=== PATIENT | female | born 1960 | race Caucasian/White ===

== ENCOUNTER 2018-07-25 07:13 | Day surgery (SDC) | payer OTHER ==
[2018-07-25] MEDS ORDERED: Midazolam 1 MG/ML 2 ML SDV ONE ×2 (07:36→09:31)
[2018-07-25] MEDS ORDERED: Propofol 200 MG/20 ML SDV ONE ×3 (07:36→09:33)
[2018-07-25] MEDS ORDERED: fentaNYL 100 MCG/2 ML SDV ONE (07:36)
[2018-07-25] MEDS: Sodium Chloride 0.9% 1,000 ML IV SCH (07:42)
[2018-07-25] MEDS: Lidocaine 1% with EPINEPHrine 1:100,000 50 ML MDV ONE (09:42)
[2018-07-25] MEDS: Bupivacaine 0.5% 50 ML MDV ONE (09:42)
[2018-07-25] MEDS: Morphine 2 MG/ML Syringe IVPUSH ONE (10:55)
--- NOTE | 2018-07-25 11:14 | CRLCR ---
INDICATION: Port-A-Cath insertion. Exclude pneumothorax. TECHNIQUE: Portable chest performed at 10:06 a.m. FINDINGS: There is no evidence of pneumothorax or mediastinal hematoma. The tip of the right-sided Port-A-Cath lies at the juncture of the subclavian vein and innominate vein. Dictated by Marcelino Miranda MD @ Jul 25 2018 11:11AM Signed by Dr. Marcelino Miranda @ Jul 25 2018 11:11AM
[2018-07-25] MEDS: Acetaminophen/HYDROcodone 325-5 MG Tab PO ONE (11:58)
[2018-07-25 12:02] VITALS: BP 118/82
--- NOTE | 2018-07-25 17:33 | OR ---
DATE OF PROCEDURE: 07/25/2018 PROCEDURE: Port-A-Cath placement. COMPLICATIONS: None. MOUNTER: None. ANESTHESIA: MAC/local. RISKS: Risks, benefits, alternatives, and limitations including, but not limited to infection, bleeding, pneumothorax, and other risks not listed here were explained to the patient, who wished to proceed. PROCEDURE IN DETAIL: The patient was placed in supine position. The left subclavian was accessed on the first pass. The vein was able to be accessed, and the wire was able to be advanced. However, at the innominate vein, it was unable to be advanced due to sclerosing or angle of anatomy. This was attempted multiple times, but unfortunately, this was unable to be traversed. Due to this most likely issue at the innominate vein, the left jugular vein would not be a good target as this would end up in the same area of tortuosity or obstruction. Therefore, the right side was then addressed as an unfortunate second choice. The subclavian vein was accessed on the first pass. This was advanced without difficulty. Once this was completed, the micropuncture kit was exchanged for the standard wire. The tubing was then advanced. I was able to advance, the wire was removed. This was deflected in the upper part of the superior vena cava. A pocket was then created and the skin was anesthetized, after anesthetizing with 1% lidocaine. This was then sutured into place. A De La Fuente needle was used to check the device, which functioned well. This was then closed and then checked again, and worked well without difficulty. The patient tolerated the procedure well. Juni Paulino MD /[id number]
== END 2018-07-25 12:40 | disposition home or self-care (01) ==
LOC: JP.SDS 07:13
PROVIDERS: ATTEND Surgery
DX: C50.919 Malignant neoplasm of unspecified site of unspecified female breast (principal); F41.9 Anxiety disorder, unspecified; Z87.891 Personal history of nicotine dependence
CPT/HCPCS: A9270-GY; C1788; C1894; J1642; J2250; J2270; J2704; J3010; J3490; J7030

== ENCOUNTER 2018-07-27 13:32 | Day surgery (SDC) | payer OTHER ==
[~2018-07-27 13:32] MED LIST: Bupivacaine 0.5% 50 ML MDV ONE; Lidocaine 1% with EPINEPHrine 1:100,000 50 ML MDV ONE; Midazolam 1 MG/ML 2 ML SDV ONE; Propofol 200 MG/20 ML SDV ONE; fentaNYL 100 MCG/2 ML SDV ONE
[2018-07-27] MEDS ORDERED: Sodium Chloride 0.9% 1,000 ML IV SCH (14:00)
[2018-07-27] MEDS ORDERED: Propofol 200 MG/20 ML SDV ONE (14:17)
[2018-07-27] MEDS ORDERED: Morphine 2 MG/ML Syringe IVPUSH ONE (15:22)
--- NOTE | 2018-07-27 15:25 | OR ---
DATE OF PROCEDURE: 07/27/2018 PROCEDURE: Removal of Bard PowerPort. INDICATIONS: A pleasant 57-year-old female, who had an erythematous reaction immediately after placement of the port. She was seen early in clinic today and this erythematous reaction continued to be noted in her arms, shoulders, and chest. This reaction had occurred immediately after placement leading to infection. COMPLICATIONS: None. GENERATOR REBUILDER: None. ANESTHESIA: MAC/local. PROCEDURE IN DETAIL: The patient was placed in supine position. The previous port site was opened with a 15 blade. The port was identified. The sutures were clipped and removed. The wound was irrigated and closed with 3-0 Vicryl and 4-0 Vicryl. Prior to irrigation, this was also cultured. Dressings were applied. The patient tolerated the procedure well. Juni Paulino MD /[id number]
[2018-07-27] MEDS ORDERED: Acetaminophen/HYDROcodone 325-5 MG Tab PO PRN (15:42)
== END 2018-07-27 16:25 | disposition home or self-care (01) ==
LOC: JP.SDS 13:32
PROVIDERS: ATTEND Surgery
DX: T80.219A Unspecified infection due to central venous catheter, initial encounter (principal); C50.911 Malignant neoplasm of unspecified site of right female breast
CPT/HCPCS: 36590; 87070; 87075; 87205; A9270; J2250; J2270; J2704; J3010; J3490; J7030

== ENCOUNTER 2018-08-10 09:19 | Day surgery (SDC) | payer OTHER ==
[~2018-08-10 09:19] MED LIST changes: -Bupivacaine 0.5% 50 ML MDV ONE; -Lidocaine 1% with EPINEPHrine 1:100,000 50 ML MDV ONE
[2018-08-10] MEDS ORDERED: Bupivacaine 0.5% 50 ML MDV ONE (09:33)
[2018-08-10] MEDS ORDERED: Lidocaine 1% with EPINEPHrine 1:100,000 50 ML MDV ONE (09:33)
[2018-08-10] MEDS ORDERED: Sodium Chloride 0.9% 1,000 ML IV SCH (09:45)
[2018-08-10] MEDS ORDERED: ceFAZolin 2 GM in Premix Bag 1 BAG IV ONE (10:15)
[2018-08-10] MEDS ORDERED: Propofol 200 MG/20 ML SDV ONE ×2 (10:26→10:39)
[2018-08-10] MEDS ORDERED: Morphine 2 MG/ML Syringe IVPUSH PRN (11:06)
[2018-08-10] MEDS ORDERED: hydrOXYzine HCl 100 MG/2 ML SDV IM ONE (11:29)
[2018-08-10] MEDS ORDERED: Acetaminophen/HYDROcodone 325-5 MG Tab PO ONE (12:25)
--- NOTE | 2018-08-11 08:32 | OR ---
DATE OF PROCEDURE: 08/10/2018 PROCEDURE: Port-A-Cath placement, left jugular vein. COMPLICATIONS: None. SURGEON: Juni Paulino MD PRINTING PLATE MAKER: None. ANESTHESIA: MAC/local. RISKS: Risks, benefits, alternatives, and limitations including, but not limited to infection, bleeding, and pneumothorax were explained to the patient, who wished to proceed. PREOPERATIVE DIAGNOSIS: Breast cancer. POSTOPERATIVE DIAGNOSIS: Breast cancer. PROCEDURE IN DETAIL: The patient was placed in supine position. The left chest was prepped and draped. Using 11 megahertz ultrasound probe, the internal jugular vein was readily identified. This was accessed using a 21-gauge needle exchanged for a 35,000th wire. Under fluoroscopic guidance, this was subsequently dilated and the port tubing was entered. This was noted across midline. This was then placed in the superior vena cava. Of note, additional adjustments will be made during this procedure to maximize location. Lidocaine was then used to anesthetize the port site. The pocket was created by Metzenbaum scissors. This was then sized again. The black plastic cuff was used, and this was locked into place. A De La Fuente needle was used to check aspiration and injection multiple times, including at the end of this procedure. As previously noted, this was sewed in three locations. The subcutaneous tissues were closed with 3-0 Vicryl and skin was closed with 4- 0 Vicryl. The patient tolerated the procedure well. Juni Paulino MD /[id number]
== END 2018-08-10 13:10 | disposition home or self-care (01) ==
LOC: JP.SDS 09:19
PROVIDERS: ATTEND Surgery
DX: C50.919 Malignant neoplasm of unspecified site of unspecified female breast (principal); Z87.891 Personal history of nicotine dependence
CPT/HCPCS: 36561; A9270; C1788; C1894; J0690; J1642; J2250; J2270; J2704; J3010; J3410; J3490; J7030

== ENCOUNTER 2019-02-08 08:36 | Day surgery (SDC) | payer OTHER ==
[~2019-02-08 08:36] MED LIST changes: +Bupivacaine 0.5% 50 ML MDV ONE; +Lidocaine 1% with EPINEPHrine 1:100,000 50 ML MDV ONE; -Midazolam 1 MG/ML 2 ML SDV ONE; -Propofol 200 MG/20 ML SDV ONE; -fentaNYL 100 MCG/2 ML SDV ONE
[2019-02-08] MEDS ORDERED: Sodium Chloride 0.9% 1,000 ML IV SCH (09:00)
[2019-02-08] MEDS ORDERED: Albuterol/Ipratropium 3.0-0.5 MG/3 ML Neb Soln NEB ONE (10:47)
[2019-02-08] MEDS ORDERED: fentaNYL 100 MCG/2 ML SDV ONE (10:56)
[2019-02-08] MEDS ORDERED: Propofol 200 MG/20 ML SDV ONE ×3 (10:56→11:44)
[2019-02-08] MEDS ORDERED: Midazolam 1 MG/ML 2 ML SDV ONE (10:56)
[2019-02-08] MEDS ORDERED: Acetaminophen/HYDROcodone 325-5 MG Tab PO PRN (12:28)
--- NOTE | 2019-02-08 13:51 | OR ---
DATE OF PROCEDURE: 02/08/2019 SURGEON: Juni Pualino MD PROCEDURE: Port-A-Cath removal. COMPLICATIONS: None. SUPERINTENDENT AMMUNITION STORAGE: None. ANESTHESIA: MAC/local. PREOPERATIVE DIAGNOSIS: Breast cancer requiring chemotherapy, which is now completed. POSTOPERATIVE DIAGNOSIS: Breast cancer requiring chemotherapy, which is now completed. RISKS: Risks, benefits, alternatives, and limitations including, but not limited to infection and bleeding were explained to the patient. DESCRIPTION OF PROCEDURE: The patient was placed in supine position. Previous incision was opened. Electrocautery was used to dissect down into the capsule. This was then opened further. Port-A-Cath was removed in completion. Direct pressure was held on the jugular for approximately 5 minutes. The wound was closed with 3-0 Vicryl and 4-0 Vicryl in interrupted running fashion. The patient tolerated the procedure well. Juni Paulino MD /[id number]
== END 2019-02-08 12:05 | disposition home or self-care (01) ==
LOC: JP.SDS 08:36
PROVIDERS: ATTEND Surgery
DX: C50.919 Malignant neoplasm of unspecified site of unspecified female breast (principal); F41.9 Anxiety disorder, unspecified
CPT/HCPCS: 36589; A9270; J2250; J2704; J3010; J3490; J7030; J7620-GY

== ENCOUNTER 2020-01-15 06:35 | Day surgery (SDC) | payer OTHER ==
[2020-01-15] MEDS ORDERED: Sodium Chloride 0.9% 1,000 ML IV SCH (07:00)
[2020-01-15] MEDS ORDERED: Propofol 200 MG/20 ML SDV ONE ×3 (07:42→08:09)
[2020-01-15] MEDS ORDERED: Midazolam 1 MG/ML 2 ML SDV ONE (07:42)
[2020-01-15] MEDS ORDERED: fentaNYL 100 MCG/2 ML SDV ONE (07:42)
--- NOTE | 2020-01-16 09:09 | OR ---
DATE OF PROCEDURE: 01/15/2020 SURGEON: Juni Paulino MD PROCEDURE: Colonoscopy. FINDINGS: Transverse colon polyp, approximately 5 mm, completely removed using cold biopsy forceps. COMPLICATIONS: None. SWEATBAND CUTTING MACHINE OPERATOR: None. ANESTHESIA: MAC. PREOPERATIVE DIAGNOSIS: Screening colonoscopy. POSTOPERATIVE DIAGNOSIS: Screening colonoscopy. RISKS: Risks, benefits, alternatives, and limitations including, but not limited to infection, bleeding, and perforation were explained to the patient who wished to proceed. PROCEDURE IN DETAIL: The patient was placed in the left lateral decubitus position. Digital rectal exam was performed without abnormality. The scope was introduced and advanced atraumatically to the ileocecal valve. The ileocecal valve was cannulated. No evidence of ileitis or abnormality. The scope was brought back through the ascending, transverse, descending colon and retroflexed. No evidence of old or new blood. Transverse colon polyp was identified and completely removed. No abnormalities on retroflexion. The patient tolerated the procedure well. Juni Paulino MD /[id number]
== END 2020-01-15 09:26 | disposition home or self-care (01) ==
LOC: JP.SDS 06:35
PROVIDERS: ATTEND Surgery
DX: Z12.11 Encounter for screening for malignant neoplasm of colon (principal); K63.5 Polyp of colon; F41.9 Anxiety disorder, unspecified; Z87.891 Personal history of nicotine dependence
CPT/HCPCS: 45380; 88305; J2250; J2704; J3010; J7030